=== PATIENT | male | born 1980 | race Hispanic/Latino ===

== ENCOUNTER 2021-11-13 14:37 | Emergency (ER) | payer SELFPAY ==
[2021-11-14] MEDS ORDERED: MECLIZINE 25 MG TAB PO ONE (00:14)
--- NOTE | 2021-11-14 00:56 | XRay Report ---
CHEST 1 VIEW 11/13/2021 11:47 PM INDICATION / CLINICAL INFORMATION: Lightheadedness / Dizziness. COMPARISON: None available. FINDINGS: SUPPORT DEVICES: None. HEART / MEDIASTINUM: No significant abnormality. LUNGS / PLEURA: No significant pulmonary abnormality. No significant pleural effusion. No pneumothora x. ADDITIONAL FINDINGS: No significant additional findings. IMPRESSION: 1. No acute abnormality of the chest. Signer Name: Gabriel Aly MD Signed: 11/14/2021 12:52 AM Workstation Name: [id number]
--- NOTE | 2021-11-14 00:58 | Cat Scan Report ---
CT HEAD WITHOUT CONTRAST INDICATION / CLINICAL INFORMATION: Lightheadedness / Dizziness. TECHNIQUE: All CT scans at this location are performed using CT dose reduction for ALARA by means of automated exposure control. COMPARISON: None available. FINDINGS: BRAIN PARENCHYMA: No acute intracranial hemorrhage. No evidence of recent infarct. No mass effect or midline shift. VENTRICULAR SYSTEM/EXTRA-AXIAL SPACES: Ventricles are normal for age. No extra-axial fluid collection . ORBITS: Normal as visualized. SKELETAL SYSTEM/SOFT TISSUES: Normal bones and soft tissues. PARANASAL SINUSES/MASTOID AIR CELLS: No significant abnormality. ADDITIONAL FINDINGS: None. IMPRESSION: 1. No acute intracranial abnormality. Signer Name: Gabriel Aly MD Signed: 11/14/2021 12:54 AM Workstation Name: [id number]
--- NOTE | 2021-11-14 01:07 | Emergency Department Report ---
ED General Adult HPI - General Chief complaint: Dizziness Stated complaint: OTHER Time Seen by Provider: 11/14/21 00:13 Source: patient Mode of arrival: Ambulatory Limitations: No Limitations - History of Present Illness Initial comments: Patient is 40 years old male with history of hypertension. Patient presented to the ER with multiple complaints that started approximately 1 month ago. Patient stated that he started to have some dizziness especially when he stands up. He also noticed some blurry vision sometimes. Patient is also complaining of diffuse joint pain and he stated that there is knots come on his joints especially the hands and something in the ear also. He denied any fever or chills. He also denied any shortness of breath, nausea or vomiting Severity scale (0 -10): 8 - Related Data Allergies Allergy/AdvReac Type Severity Reaction Status Date / Time No Known Allergies Allergy Unverified 11/13/21 16:19 ED Review of Systems ROS: Stated complaint: OTHER Other details as noted in HPI Comment: All other systems reviewed and negative Constitutional: denies: chills, fever Respiratory: denies: cough, shortness of breath, SOB with exertion, SOB at rest Cardiovascular: denies: chest pain, palpitations Gastrointestinal: denies: abdominal pain, nausea, vomiting Musculoskeletal: arthralgia. denies: back pain Neurological: denies: headache, weakness ED Physical Exam - General Limitations: No Limitations General appearance: alert, in no apparent distress - Head Head exam: Present: atraumatic, normocephalic, normal inspection - Eye Eye exam: Present: normal appearance - ENT ENT exam: Present: normal exam, normal orophraynx, mucous membranes moist - Neck Neck exam: Present: normal inspection, full ROM. Absent: tenderness, meningismus - Respiratory Respiratory exam: Present: normal lung sounds bilaterally - Cardiovascular Cardiovascular Exam: Present: regular rate, normal rhythm, normal heart sounds - GI/Abdominal GI/Abdominal exam: Present: soft, normal bowel sounds. Absent: distended, tenderness, guarding, rebound, rigid, organomegaly, mass, bruit, pulsatile mass, hernia - Extremities Exam Extremities exam: Present: normal inspection, full ROM, normal capillary refill. Absent: tenderness - Back Exam Back exam: Present: normal inspection, full ROM. Absent: CVA tenderness (R), CVA tenderness (L) - Neurological Exam Neurological exam: Present: alert, oriented X3, CN II-XII intact, normal gait, reflexes normal. Absent: motor sensory deficit - Psychiatric Psychiatric exam: Present: normal mood - Skin Skin exam: Present: warm, intact, normal color ED Course Vital Signs 11/13/21 16:27 Temperature 98.1 F Pulse Rate 108 H Respiratory 18 Rate Blood Pressure 140/93 [Right] O2 Sat by Pulse 98 Oximetry ED Medical Decision Making - Lab Data Result diagrams: 11/14/21 01:09 11/14/21 01:09 - Radiology Data Radiology results: report reviewed - Medical Decision Making Patient is 40 years old male with history of hypertension. Patient presented to the ER with multiple complaints that started approximately 1 month ago. Patient stated that he started to have some dizziness especially when he stands up. He also noticed some blurry vision sometimes. Patient is also complaining of diffuse joint pain and he stated that there is knots come on his joints es pecially the hands and something in the ear also. He denied any fever or chills. He also denied any shortness of breath, nausea or vomiting Labs reviewed and is unremarkable. CT brain is negative for acute finding. Chest x-ray is unremarkable. Patient received meclizine and stated that her sym ptom is better. Patient given prescription for meclizine and strongly advised to follow-up with information services vice president in the next 2 to 3 days and to return to the ER if he develop any new symptoms. Critical care attestation.: If time is entered above; I have spent that time in minutes in the direct care of this critically ill patient, excluding procedure time. ED Disposition Clinical Impression: Dizziness, Joint pain Disposition: 01 HOME / SELF CARE / HOMELESS Is pt being admited?: No Condition: Stable Instructions: Joint Pain, Dizziness Referrals: NATASHA FERRELL MD [Primary Care Provider] - 3-5 Days JANES SCALES MD [Referring] - 3-5 Days
[2021-11-14 01:26] LABS: Bilirubin,Urine NEG (Negative); Blood,Urine NEG (Negative); Color,Urine Yellow (Yellow); Mucus,Urine FEW /HPF; Protein,Urine <15 mg/dL mg/dL (Negative); Urobilinogen,Urine < 2.0 mg/dL (<2.0)
[2021-11-14 01:31] LABS: Basophils # (Auto) 0.1 K/mm3 (0.0-0.1); Basophils % (Auto) 1.3 % (0.0-1.8); Eosinophils # (Auto) 0.3 K/mm3 (0.0-0.4); Eosinophils % (Auto) 3.7 % (0.0-4.3); Hemoglobin 13.9 gm/dl (11.8-15.2); Lymphocytes # (Auto) 2.5 K/mm3 (1.2-5.4); Lymphocytes % (Auto) 29.6 % (13.4-35.0); Mean Corpuscular HGB Conc 33 % (32-34); Mean Corpuscular Volume 91 fl (84-94); Monocytes # (Auto) 0.6 K/mm3 (0.0-0.8); Monocytes % (Auto) 7.4 % (0.0-7.3); Platelet Count 247 K/mm3 (140-440); Red Blood Count 4.62 M/mm3 (3.65-5.03); Red Cell Distribution Width 12.8 % (13.2-15.2)
[2021-11-14 01:50] LABS: BUN/Creatinine Ratio 11; Blood Urea Nitrogen 12 mg/dL (9-20); Calcium 8.8 mg/dL (8.4-10.2); Hemolysis Index 3
[2021-11-14 01:50] LABS: Alanine Aminotransferase 15 units/L (7-56); Albumin 4.1 g/dL (3.9-5)
[2021-11-14 02:13] LABS: Bilirubin,Direct < 0.2 mg/dL (0-0.2)
[2021-11-14] MEDS ORDERED: MECLIZINE 25 MG TAB ONE (03:18)
[2021-11-14 04:31] VITALS: BP 161/84
--- NOTE | 2021-11-15 17:50 | Electrocardiograph Report ---
[facility] Test Date: 2021-11-13 Test Time: 16:42:40 Pat Name: ALENA FRANCO Department: Room: Gender: M [employer]: RUTH : 1980 Requested By: FREEMAN READ Order Number: [id number] Reading MD: Jaime Bonilla Measurements Intervals [place] Rate: 100 P: 69 DC: 142 QRS: 81 QRSD: 92 T: 51 QT: 354 QTc: 457 Interpretive Statements Sinus tachycardia Probable left atrial enlargement No previous ECG available for comparison Electronically Signed On 11-15-2021 17:49:52 EDT by Jaime Bonilla
== END 2021-11-14 03:20 | disposition home or self-care (01) ==
LOC: ED 14:37
DX: R42 Dizziness and giddiness (principal); M25.50 Pain in unspecified joint
CPT/HCPCS: 36415; 70450; 71045; 80048; 80076; 81001; 84484; 85025; 86431; 87086; 93005; 99284